=== PATIENT | male | born 1960 | race Caucasian/White ===

== ENCOUNTER → 2017-07-04 | Outpatient (CLI) | payer BC ==
[~2017-07-04] MED LIST: ATENOLOL100 MG PO; FLEXERIL10 MG PO; FLEXERIL5 MG PO; LISINOPRIL PO; MOTRIN800 MG PO; Motrin,Rufen800 MG PO; NORCO 5-325 TA1 EACH PO; NORVASC2.5 MG PO; Orphenadrine C100 MG PO; TRAMADOL HCL50 MG PO; VICODIN 5/500 505 MG PO; VICODIN ES 7501 TAB PO; VICODIN PO; XANAX PO
[2017-07-04 02:53] LABS: BASO # 0.1 10*3/uL (0.0-0.1); BASO % 0.7 % (0.0-1.0); EOS # 0.4 10*3/uL (0.0-0.4); EOS % 3.6 % (1.0-4.0); HEMATOCRIT 42.8 % (42.0-52.0); HEMOGLOBIN 14.1 g/dl (14.0-18.0); LYMPH # 1.9 10*3/uL (1.3-4.4); MEAN CELL VOLUME 100.5 fl (80.0-94.0); MEAN CORPUSCULAR HGB 33.1 pg (27.0-31.0); MEAN CORPUSCULAR HGB CONC 32.9 g/dl (33.0-37.0); MEAN PLATELET VOLUME 9.4 fl (9.6-12.3); MONO # 0.8 10*3/uL (0.1-1.0); MONO % 7.9 % (3.0-9.0); NEUT # 7.2 10*3/uL (2.3-7.9); NEUT % 69.4 % (47.0-73.0); PLATELET COUNT AUTOMATED 283 10*3/uL (130-400); RED BLOOD COUNT 4.26 10*6/uL (4.50-5.90); WHITE BLOOD COUNT 10.3 10*3/uL (4.8-10.8)
== END | disposition home or self-care (01) ==
LOC: LAB 02:19
PROVIDERS: Internal Medicine Hematology & Oncology
DX: D16.9 Benign neoplasm of bone and articular cartilage, unspecified (principal)

== ENCOUNTER → 2019-02-28 | Outpatient (CLI) | payer BC ==
[~2019-02-28] MED LIST changes: +AUGMENTIN 875875 MG PO; +HYDROCODONE-AC1 EAC2 PO; +LISINOPRIL10 M1 PO; +METOPROLOL SUCC25 M2 PO; +MUCINEX ER600 MG PO; +PROTONIX40 MG PO; +TAMSULOSIN HCL0.4 MG PO; +TESSALON PERLE100 M1 PO; +VICO75300 PO; +XANAX1 MG PO; +XARE20MG PO
[2019-02-28 19:35] LABS: BILIRUBIN NEGATIVE (NEGATIVE); BLOOD NEGATIVE (NEGATIVE); CLARITY CLEAR (CLEAR); COLOR YELLOW (YELLOW); GLUCOSE NEGATIVE (NEGATIVE); KETONE NEGATIVE (NEGATIVE); LEUKO ESTERASE NEGATIVE (NEGATIVE); NITRITE NEGATIVE (NEGATIVE); PH 5.5 (5.0-9.0); SPECIFIC GRAVITY 1.025 (1.005-1.030); UROBILINOGEN 0.2 E.U./dl (0.2-1.0)
[2019-02-28 19:42] LABS: BACTERIA TRACE; EPITHELIAL CELLS 0-2; MUCOUS 3+; WBC 0-2 wbc/hpf (0-5)
[2019-02-28 19:44] LABS: ALBUMIN 3.7 gm/dl (3.1-4.5); BUN 19 mg/dl (7-24); CHLORIDE 102 mmol/L (98-107); CREATININE 1.04 mg/dL (0.70-1.30); PHOSPHOROUS 4.2 mg/dL (2.5-4.9); POTASSIUM 3.9 mmol/L (3.5-5.1); SODIUM 139 mmol/L (136-145)
== END | disposition home or self-care (01) ==
LOC: LAB 18:55
PROVIDERS: Family Medicine
DX: R94.4 Abnormal results of kidney function studies (principal); I10 Essential (primary) hypertension

== ENCOUNTER → 2021-09-15 | Outpatient (CLI) | payer OTHER | END | disposition home or self-care (01) | LOC: COVID19 15:50 | PROVIDERS: ATTEND Internal Medicine | DX: Z11.52 Encounter for screening for COVID-19 (principal) ==

== ENCOUNTER → 2021-11-26 | Outpatient (CLI) | payer OTHER | LOC: WOUNDCARE 08:13 | PROVIDERS: ATTEND Nurse Practitioner Family | DX: T24.332A Burn of third degree of left lower leg, initial encounter (principal); T31.0 Burns involving less than 10% of body surface; M89.321 Hypertrophy of bone, right humerus; I10 Essential (primary) hypertension; F17.290 Nicotine dependence, other tobacco product, uncomplicated; Z96.643 Presence of artificial hip joint, bilateral; Z98.890 Other specified postprocedural states; X16.XXXA Contact with hot heating appliances, radiators and pipes, initial encounter; Y93.89 Activity, other specified; Y92.89 Other specified places as the place of occurrence of the external cause; Y99.8 Other external cause status ==

== ENCOUNTER 2022-01-11 16:16 | Emergency (ER) | payer OTHER ==
[~2022-01-11] VITALS: Ht 172.7 cm; Wt 77.1 kg
[2022-01-11] MEDS ORDERED: ATENOLOL25 MG PO (16:42)
[2022-01-11 17:14] LABS: BASO % 0.5 % (0.0-1.0); EOS # 0.2 10*3/uL (0.0-0.4); EOS % 2.7 % (1.0-4.0); HEMATOCRIT 25.6 % (42.0-52.0); LYMPH # 1.3 10*3/uL (1.3-4.4); LYMPH % 22.2 % (27.0-41.0); MEAN CELL VOLUME 99.2 fl (80.0-94.0); MEAN CORPUSCULAR HGB 33.7 pg (27.0-31.0); MEAN PLATELET VOLUME 8.9 fl (9.6-12.3); MONO # 0.6 10*3/uL (0.1-1.0); MONO % 9.3 % (3.0-9.0); NEUT # 3.9 10*3/uL (2.3-7.9); NEUT % 64.8 % (47.0-73.0); PLATELET COUNT AUTOMATED 227 10*3/uL (130-400); RED BLOOD COUNT 2.58 10*6/uL (4.50-5.90); RED CELL DISTRI WIDTH 12.7 % (0-14.5)
[2022-01-11 17:25] LABS: ACT PARTIAL THROMBO TIME 28.1 SECONDS (20.0-32.1)
[2022-01-11 17:32] LABS: ALKALINE PHOSPHATASE 55 U/L (45-117); BUN 30 mg/dl (7-24); CHLORIDE 98 mmol/L (98-107); CREATININE 1.26 mg/dL (0.70-1.30); LIPASE 54 U/L (73-393); POTASSIUM 3.1 mmol/L (3.5-5.1); SGOT/AST 26 IU/L (3-35); SGPT/ALT 24 U/L (12-78); SODIUM 129 mmol/L (136-145); TOTAL PROTEIN 6.3 gm/dL (6.4-8.2)
[2022-01-11 17:59] LABS: BILIRUBIN Negative (Negative); BLOOD Negative (Negative); CLARITY Clear (Clear); COLOR Yellow (Yellow); GLUCOSE Negative (Negative); KETONE Negative (Negative); LEUKO ESTERASE Negative (Negative); NITRITE Negative (Negative); UROBILINOGEN 0.2 E.U./dl (0.0-1.0)
[2022-01-11 18:09] LABS: URINE AMPHETAMINES > 1000 (1000ng/ml); URINE BARBITURATES < 200 (200ng/ml); URINE BENZODIAZEPINES > 200 (200ng/ml); URINE CANNABINOIDS (THC) < 50 (50ng/ml); URINE COCAINE < 300 (300ng/ml); URINE METHADONE < 300 (300ng/ml); URINE OPIATES > 300 (300ng/ml)
[2022-01-11 18:10] LABS: URINE PHENCYCLIDINE < 25 (25ng/ml)
[2022-01-11 18:16] LABS: BACTERIA TRACE; HYALINE CAST 0-2; WBC 0-2 wbc/hpf (0-5)
== END 2022-01-11 19:16 | disposition left against medical advice (07) ==
LOC: ED 16:16
PROVIDERS: Emergency Medicine; Hospitalist
DX: K92.2 Gastrointestinal hemorrhage, unspecified (principal); D62 Acute posthemorrhagic anemia; I10 Essential (primary) hypertension; J44.9 Chronic obstructive pulmonary disease, unspecified; Z79.899 Other long term (current) drug therapy; Z98.890 Other specified postprocedural states

== ENCOUNTER 2022-03-15 12:05 | Emergency (ER) | payer OTHER ==
[~2022-03-15] VITALS: Ht 172.7 cm; Wt 77.1 kg
[~2022-03-15 12:05] MED LIST changes: +ATENOLOL25 MG PO
[2022-03-15] MEDS ORDERED: CIPRO500 MG PO (12:58)
== END 2022-03-15 13:15 | disposition home or self-care (01) ==
LOC: ED 12:05
DX: H60.92 Unspecified otitis externa, left ear (principal); L25.9 Unspecified contact dermatitis, unspecified cause; Z79.899 Other long term (current) drug therapy; F17.200 Nicotine dependence, unspecified, uncomplicated; Z98.890 Other specified postprocedural states

== ENCOUNTER 2022-05-20 20:41 | Emergency (ER) | payer OTHER ==
[~2022-05-20] VITALS: Ht 172.7 cm; Wt 76.2 kg
[~2022-05-20 20:41] MED LIST changes: +CIPRO500 MG PO
[2022-05-20] MEDS ORDERED: XANAX0.5 MG PO (20:57)
[2022-05-20 21:38] LABS: BASO # 0.1 10*3/uL (0.0-0.1); EOS # 0.3 10*3/uL (0.0-0.4); EOS % 3.6 % (1.0-4.0); HEMATOCRIT 43.6 % (42.0-52.0); LYMPH # 1.7 10*3/uL (1.3-4.4); LYMPH % 21.3 % (27.0-41.0); MEAN CORPUSCULAR HGB 32.4 pg (27.0-31.0); MEAN PLATELET VOLUME 9.2 fl (9.6-12.3); MONO # 0.7 10*3/uL (0.1-1.0); MONO % 8.6 % (3.0-9.0); NEUT % 64.7 % (47.0-73.0); PLATELET COUNT AUTOMATED 279 10*3/uL (130-400); RED BLOOD COUNT 4.45 10*6/uL (4.50-5.90); RED CELL DISTRI WIDTH 14.6 % (0-14.5); WHITE BLOOD COUNT 7.8 10*3/uL (4.8-10.8)
[2022-05-20 21:53] LABS: ALKALINE PHOSPHATASE 65 U/L (45-117); BUN 37 mg/dl (7-24); CHLORIDE 102 mmol/L (98-107); CREATININE 0.98 mg/dL (0.70-1.30); POTASSIUM 4.2 mmol/L (3.5-5.1); SGOT/AST 16 IU/L (3-35); SGPT/ALT 20 U/L (12-78); SODIUM 137 mmol/L (136-145); TOTAL PROTEIN 6.5 gm/dL (6.4-8.2)
[2022-05-20 22:01] LABS: THYROID STIM HORMONE (HS) 0.673 uIU/ml (0.358-4.75)
== END 2022-05-21 00:43 | disposition home or self-care (01) ==
LOC: ED 20:41
PROVIDERS: Emergency Medicine
DX: R07.9 Chest pain, unspecified (principal); F41.9 Anxiety disorder, unspecified; F43.0 Acute stress reaction; Z79.899 Other long term (current) drug therapy